=== PATIENT | male | born 1955 | race Caucasian/White ===

== ENCOUNTER 2018-12-19 23:58 | Emergency (ER) | payer OTHER, SELFPAY ==
[2018-12-20] MEDS ORDERED: Ondansetron PF 4 MG/2 ML Vial ONE (00:30)
[2018-12-20 00:43] LABS: #Basophils 0.1 thou/uL (0.0-0.2); #Lymphocytes 0.2 thou/uL (1.20-3.40); #Monocytes 0.7 thou/uL (0.11-0.59); #Neutrophils 14.8 thou/uL (1.40-6.50); %Basophils 0.5 % (0.0-1.0); %Eosinophils 0.2 % (0.0-10.0); %Lymphocytes 1.3 % (21.0-51.0); %Monocytes 4.1 % (0.0-10.0); %Neutrophils 93.9 % (42.0-75.0); Hemoglobin 16.9 g/dL (14.0-18.0); Mean Corpuscular HGB CONC 32.1 g/dL (32.0-36.0); Mean Corpuscular Hemoglobin 29.8 pg (27.0-31.0); Mean Corpuscular Volume 92.7 fL (78.0-98.0); Platelet Count 255 thou/uL (130-400); RBC Distribution Width 12.7 % (11.5-14.5); Red Blood Cell (RBC) Count 5.66 mill/uL (4.70-6.10); White Blood Cell (WBC) Count 15.7 thou/uL (4.8-10.8)
[2018-12-20 00:44] LABS: ALT (SGPT) 19 U/L (8-55); AST (SGOT) 11 U/L (5-34); Albumin 4.4 g/dL (3.4-4.8); Alkaline Phosphatase 69 U/L (40-150); Anion Gap 20 mmol/L (10-20); BUN (Urea Nitrogen) 31 mg/dL (8.4-25.7); Bilirubin, Total 0.7 mg/dL (0.2-1.2); Calc. Creatinine Clearance 0 mL/min (70-130); Calcium 9.7 mg/dL (7.8-10.44); Carbon Dioxide 19 mmol/L (23-31); Chloride 101 mmol/L (98-107); Estimated GFR-MDRD 37; Globulin 2.8 g/dL (2.4-3.5); Glucose 320 mg/dL (80-115); Potassium 4.9 mmol/L (3.5-5.1); Protein, Total 7.2 g/dL (5.8-8.1); Sodium 135 mmol/L (136-145)
[2018-12-20] MEDS ORDERED: metroNIDAZOLE 500 MG/100 ML BAG ONE (01:49)
[2018-12-20] MEDS ORDERED: Cefepime 2 GM VIAL ONE (01:50)
[2018-12-20 04:06] LABS: Bilirubin Negative (Negative); Blood, Urine Negative (Negative); Clarity Clear (Clear); Glucose, Urine (Dipstick) 500 mg/dL (Negative); Leukocyte Negative (Negative); Nitrite Negative (Negative); Protein, Urine (Dipstick) 30 mg/dL (Neg-Trace); Urobilinogen 0.2 mg/dL (Less than 2)
[2018-12-20 04:07] LABS: Bacteria/HPF None Seen HPF (None Seen); RBC/HPF 0-3 HPF (0-3); Squamous Epithelial None Seen HPF (0-3); WBC/HPF 0-3 HPF (0-3)
[2018-12-20] MEDS ORDERED: Sodium Chloride 0.9% 3,000 ML ONE (05:51)
--- NOTE | 2018-12-20 07:28 | RAD ---
CHEST 1 VIEW: Date: 12/20/18 INDICATION: History of nausea, vomiting, diarrhea, and fever. COMPARISON: None. FINDINGS: Low lung volumes accentuate cardiac silhouette and pulmonary vasculature. No definite consolidation, pleural effusion, or pneumothorax evident. No acute osseous abnormality is evident. IMPRESSION: Low lung volumes. POS: BH
--- NOTE | 2018-12-20 07:44 | CT ---
PRELIMINARY REPORT/[facility]/EMERGENCY AFTER HOURS PROCEDURE: PROCEDURE INFORMATION: Exam: CT Abdomen and Pelvis Without Contrast Exam date and time: 12/20/2018 1:55 AM Clinical history: 63 years old, male; Nausea and other: Diarrhea; Patient HX: C/O n/d that started today, along with intermittent abdominal cramps; Additional info: PT brought in via EMS as he states he couldn't drive himself. He states he is light-headed with sitting up or movement after severe watery diarrhea started this morning. Nausea, unable to eat anything. Denies vomiting. No blood in st ool noted. Did stool himself earlier today. His was noted to also be ill recently but her illness only lasted 1 day. Diffuse abd cramping nonspecific, nonlocalized. No radiation. Subj fever a nd chills noted. TECHNIQUE: Imaging protocol: Computed tomography of the abdomen and pelvis without contrast. Radiation optimization: All CT scans at this facility use at least one of these dose optimization techniques: automated exposure control; mA and/or kV adjustment per patient size (includes targeted e xams where dose is matched to clinical indication); or iterative reconstruction. COMPARISON: No relevant prior studies available. FINDINGS: Lungs: The visualized portions of the lung bases are normal. Liver: There are no focal liver lesions identified. Gallbladder and bile ducts: The gallbladder is normal. There is no evidence of biliary ductal dilatio n. Pancreas: The pancreas appears normal. No ductal dilatation. Spleen: The spleen is normal. Adrenals: The adrenal glands are normal. Kidneys and ureters: There are multiple simple right renal cysts. There is a nonobstructing left ana l pelvic calculus. There is no evidence of hydronephrosis. Stomach and bowel: The stomach is normal. The duodenum is unremarkable. The colon is normal. There is no evidence of intestinal perforation or obstruction. There are mildly thickened loops of small bowel compatible with enteritis in appropriate clinical setting. Appendix: No evidence of appendicitis. Intraperitoneal space: Unremarkable. No free air. No significant fluid collection. Vasculature: Unremarkable. No abdominal aortic aneurysm. Lymph nodes: Unremarkable. No enlarged lymph nodes. Bladder: The bladder is normal. Reproductive: Unremarkable as visualized. Bones/joints: Unremarkable. No acute fracture. Soft tissues: Unremarkable. IMPRESSION: There are mildly thickened loops of small bowel compatible with enteritis in appropriate clinical setting. Thank you for allowing us to participate in the care of your patient. Dictated and Authenticated by: Arnold Birmingham MD 12/20/2018 2:26 AM Central Time ([place] & [place]) FINAL REPORT CT ABDOMEN AND PELVIS NONCONTRAST: DATE: 12/20/2018. TIME: Performed on emergency basis at 0157 hours. HISTORY: Flank pain. FINDINGS: No comparison. The findings agree with the preliminary report by Dr. Birmingham from [facility]. N onobstructing left inferior pole renal calculus is approximately 0.3 cm greatest diameter. No evidence of urinary tract obstruction. Lack of contrast limits evaluation for other abnormalities. Small focus of nonspecific atelectasis at the right posterolateral lung base. Transcribed Date/Time: 12/20/2018 8:00 AM
== END 2018-12-20 04:00 | disposition short-term general hospital (02) ==
LOC: NAV ERS 23:58
DX: A41.9 Sepsis, unspecified organism (principal); K52.9 Noninfective gastroenteritis and colitis, unspecified; E87.2 Acidosis; E11.9 Type 2 diabetes mellitus without complications; I10 Essential (primary) hypertension; Z79.82 Long term (current) use of aspirin; Z79.84 Long term (current) use of oral hypoglycemic drugs
CPT/HCPCS: 71045; 74176; 80053; 81001; 83605; 85025; 87040; 96361; 96365; 96375; J0692; J2405; J7050